=== PATIENT | female | born 1970 | race Caucasian/White ===

== ENCOUNTER → 2017-07-24 | Outpatient (CLI) | payer OTHER ==
--- NOTE | 2017-07-25 11:14 | MM ---
Reason for exam: screening (asymptomatic). Last mammogram was performed 1 year and 4 months ago. History: Family history of breast cancer in mother at age 30 and breast cancer in grandmother. Taking estrogen for 3 years 2 months. Physical Findings: A clinical breast exam by your physician is recommended on an annual basis and results should be correlated with mammographic findings. MG 3D Screening Mammo W/Cad Bilateral CC and MLO view(s) were taken. Prior study comparison: March 22, 2016, bilateral MG screening mammo w CAD. September 09, 2014, bilateral MG screening mammo w CAD. The breast tissue is heterogeneously dense. This may lower the sensitivity of mammography. No significant changes when compared with prior studies. ASSESSMENT: Negative, BI-RAD 1 RECOMMENDATION: Routine screening mammogram of both breasts in 1 year.
== END | disposition home or self-care (01) ==
LOC: RADMAMWWP 09:03
PROVIDERS: ATTEND Obstetrics & Gynecology
DX: Z12.31 Encounter for screening mammogram for malignant neoplasm of breast (principal)
CPT/HCPCS: 77063; 77067

== ENCOUNTER → 2018-08-17 | Outpatient (CLI) | payer OTHER ==
--- NOTE | 2018-08-18 10:38 | MM ---
Reason for exam: screening (asymptomatic). Last mammogram was performed 1 year and 1 month ago. History: Family history of breast cancer in mother at age 30 and breast cancer in grandmother. Taking estrogen for 3 years 2 months. Physical Findings: A clinical breast exam by your physician is recommended on an annual basis and results should be correlated with mammographic findings. MG 3D Screening Mammo W/Cad Bilateral CC and MLO view(s) were taken. XCCL view(s) were taken of the left breast. Prior study comparison: July 24, 2017, bilateral MG 3d screening mammo w/cad. March 22, 2016, bilateral MG screening mammo w CAD. The breast tissue is heterogeneously dense. This may lower the sensitivity of mammography. Finding: There is a 5 mm circumscribed oval mass in the lower inner quadrant, anterior position of the left breast. There is a chronic nodularity in the right outer quadrant and the left inner quadrant. New finding since July 24, 2017. ASSESSMENT: Incomplete: need additional imaging evaluation, BI-RAD 0 RECOMMENDATION: Ultrasound of the left breast. [facility] will attempt to contact patient to return for ultrasound.
== END | disposition home or self-care (01) ==
LOC: RADMAMWWP 09:55
PROVIDERS: ATTEND Obstetrics & Gynecology
DX: Z12.31 Encounter for screening mammogram for malignant neoplasm of breast (principal)
CPT/HCPCS: 77063; 77067

== ENCOUNTER → 2018-08-27 | Outpatient (CLI) | payer OTHER ==
--- NOTE | 2018-08-27 10:39 | USB ---
Reason for exam: additional evaluation requested from abnormal screening. History: Family history of breast cancer in mother at age 30 and breast cancer in grandmother. Taking estrogen for 3 years 2 months. Physical Findings: Nurse did not find any significant physical abnormalities on exam. US Breast Workup Limited LT Left limited breast ultrasound including focal area of concern, retroareolar and axilla demonstrates a 0.6 x 0.4 x 0.6cm circumscribed, solid lesion at the posterior nipple. This is incidental and likely benign finding. No other solid or cystic lesion seen to correspond to the mammographic asymmetry. Scanned periareolar and lower inner quadrant. These results were verbally communicated with the patient and result sheet given to the patient on 08/27/18. ASSESSMENT: Probably benign, BI-RAD 3 RECOMMENDATION: Follow-up diagnostic mammogram and ultrasound of the left breast in 6 months.
== END | disposition home or self-care (01) ==
LOC: RADUSWWP 07:37
PROVIDERS: ATTEND Obstetrics & Gynecology
DX: R92.8 Other abnormal and inconclusive findings on diagnostic imaging of breast (principal)

== ENCOUNTER → 2019-03-01 | Outpatient (CLI) | payer OTHER ==
--- NOTE | 2019-03-01 09:42 | MM ---
Reason for exam: follow-up at short interval from prior study. Last mammogram was performed 6 months ago. History: Family history of breast cancer in mother at age 30 and breast cancer in grandmother. Took estrogen for 3 years 2 months. Physical Findings: Nurse did not find any significant physical abnormalities on exam. MG 3D Diag Mammo W/Cad LT CC and MLO view(s) were taken of the left breast. Prior study comparison: August 17, 2018, bilateral MG 3d screening mammo w/cad. July 24, 2017, bilateral MG 3d screening mammo w/cad. There is a 2mm area of upper outer quadrant calcifications on the left (only 3 definitive calcifications, not yet a true group) 6 month follow up recommended. Lateral middle depth distortion improves on magnification view and true lateral. 6 month follow up. These results were verbally communicated with the patient and result sheet given to the patient on 03/01/19. ASSESSMENT: Probably benign, BI-RAD 3 RECOMMENDATION: Follow-up diagnostic mammogram of both breasts in 6 months. Ultrasound of the left breast in 6 months.
--- NOTE | 2019-03-01 09:44 | USB ---
Reason for exam: follow-up at short interval from prior study. History: Family history of breast cancer in mother at age 30 and breast cancer in grandmother. Took estrogen for 3 years 2 months. US Breast Limited LT Left limited breast ultrasound including focal area of concern, retroareolar and axilla demonstrates a 6 x 4 x 6mm oval, solid lesion at posterior nipple, fibroglandular tissue versus unchanged smoothly marginated mass previously measuring 6 x 4 x 6mm. These results were verbally communicated with the patient and result sheet given to the patient on 03/01/19. ASSESSMENT: Probably benign, BI-RAD 3 RECOMMENDATION: Follow-up diagnostic mammogram of both breasts in 6 months. Ultrasound of the left breast in 6 months.
== END | disposition home or self-care (01) ==
LOC: RADMAMWWP 07:27
PROVIDERS: ATTEND Obstetrics & Gynecology
DX: R92.8 Other abnormal and inconclusive findings on diagnostic imaging of breast (principal)
CPT/HCPCS: 77061; 77065

== ENCOUNTER → 2019-12-30 | Outpatient (CLI) | payer BC ==
--- NOTE | 2019-12-30 11:37 | MM ---
Reason for exam: additional evaluation requested from prior study. Last mammogram was performed 10 months ago. History: Family history of breast cancer in mother at age 30 and breast cancer in grandmother. Took estrogen for 3 years 2 months. Physical Findings: Nurse did not find any significant physical abnormalities on exam. MG 3D Diag Mammo W/Cad DWIGHT Bilateral CC and MLO view(s) were taken. Prior study comparison: March 01, 2019, left breast MG 3d diag mammo w/cad LT. August 17, 2018, bilateral MG 3d screening mammo w/cad. The breast tissue is heterogeneously dense. This may lower the sensitivity of mammography. No significant new findings when compared with previous films. These results were verbally communicated with the patient and result sheet given to the patient on 12/30/19. ASSESSMENT: Benign, BI-RAD 2 RECOMMENDATION: Routine screening mammogram of both breasts in 1 year.
--- NOTE | 2019-12-30 11:40 | USB ---
Reason for exam: additional evaluation requested from prior study. History: Family history of breast cancer in mother at age 30 and breast cancer in grandmother. Took estrogen for 3 years 2 months. US Breast LT Left complete breast ultrasound includes all four quadrants, the retroareolar region and axilla. Finding demonstrates a 6 x 4 x 6mm oval, hypoechoic lesion, questionable lobe at the posterior nipple. Stable from 03/01/19. Not ultrasound benign but suspicious changes not evident. No shadowing, no irregular borders. If biopsy not performed, ultrasound in 6 months can be performed. These results were verbally communicated with the patient and result sheet given to the patient on 12/30/19. ASSESSMENT: Suspicious, BI-RAD 4 RECOMMENDATION: Ultrasound core biopsy of the left breast. (subareolar) Called Dr. Floyd's office with mammographic findings and has scheduled an appointment for the patient for 01/27/20 at 3:[address] Stoo. Biopsy scheduled for 01/31/20 at 1:00. PRELIMINARY REPORT CALLED AND FAXED TO DR. SOTO ON 12/30/19.
--- NOTE | 2019-12-30 13:37 | BD ---
EXAMINATION TYPE: Axial Bone Density DATE OF EXAM: 12/30/2019 COMPARISON: NONE CLINICAL HISTORY: 49 YR OLD FEMALE.....ICD-10 CODE: Z78.0 POST MENOPAUSAL, N95.1, Z13.820 Height: 65 Weight: 167 FRAX RISK QUESTIONS: Family History (Parent hip fracture): YES History of Fracture in Adulthood: YES RISK FACTORS HISTORY OF: FX TO LT TOES, LAST 2018 Family History of Osteoporosis: YES, MOTHER, WITH HIP FX Active:YES Postmenopausal woman: HANNAH, AUG 2019 LMP Hyperparathyroidism: NO Adrenal Insufficiency: NO MEDICATIONS: Additional Medications: D3, BP MEDS, LEXAPRO, CHOLESTEROL MEDS, Additional History: HYPERTENSION, CHOLESTEROL EXAM MEASUREMENTS: Bone mineral densitometry was performed using the [employer] System. Bone mineral density as measured about the Lumbar spine is: ----- L1-L4(G/cm2): 1.088 T Score Values are as follows: ----- L1: -1.0 ----- L2: -1.2 ----- L3: -0.6 ----- L4: -0.4 ----- L1-L4: -0.8 Bone mineral density FIRST BONE DENSITY SCAN........BASELINE STUDY Bone mineral density about the R hip (g/cm2): 0.967 Bone mineral density about the L hip (g/cm2): 0.979 T Score values are as follows: -----R Neck: -0.4 -----L Neck: -0.3 -----R Total: -0.3 -----L Total: -0.2 Bone mineral density BASELINE STUDY FRAX%s: THERE IS A 13.25 CHANCE FOR A MAJOR OSTEOPOROTIC FX AND A 0.2% FOR HIP......PROBABILITY FO R FX IN 10 YRS TIME IMPRESSION: Normal (Values between +1 and -1 indicate normal bone mass). Consider repeating this study in 5 year s or sooner if there is some new clinical indication. NOTE: T-SCORE=SD OF THE YOUNG ADULT MEAN.
== END | disposition home or self-care (01) ==
LOC: RADMAMWWP 09:04
PROVIDERS: ATTEND Obstetrics & Gynecology
DX: Z13.820 Encounter for screening for osteoporosis (principal); R92.8 Other abnormal and inconclusive findings on diagnostic imaging of breast; Z78.0 Asymptomatic menopausal state
CPT/HCPCS: 77062; 77066; 77080

== ENCOUNTER → 2020-01-31 | Day surgery (SDC) | payer BC ==
[2020-01-31 12:22] VITALS: RESP 16
[2020-01-31 13:39] VITALS: BP 125/79; PULSE 66; TEMP 98.1
--- NOTE | 2020-01-31 14:00 | MM ---
EXAMINATION TYPE: US biopsy breast VAD LT DATE OF EXAM: 01/31/2020 CLINICAL HISTORY: R92.8 ABN MAMMO. TECHNIQUE: Ultrasound guided vaccuum assisted core biopsy of left breast. COMPARISON: 12/30/2019 FINDINGS: The ultrasound guided core biopsy procedure was explained to the patient. The risks, benef its, alternatives were discussed. An informed consent was then obtained. Timeout was performed. The patient was placed in supine positioning for imaging and for the procedure. The overlying skin w as prepped with betadine and sterilely draped in usual sterile fashion. Lidocaine 1% was used as ane sthetic into the skin and deeper breast tissue up to area of concern in the breast. A small skin marcos k was made with surgical scalpel. Under ultrasound guidance, a 12-gauge vacuum assisted biopsy device was used to obtain 5 core samples . A biopsy clip was left in lesion. Good hemostasis was obtained with direct pressure. Discharge instructions were discussed with the bernard torre. The patient will follow up with the referring physician for results. Postprocedure mammogram: The patient was transferred to mammography for physician ordered post proced ure mammogram for clip placement verification. The clip is in the expected region of the biopsy. The patient tolerated the procedure well without any immediate complication. The patient was dischar ged to home in stable condition. IMPRESSION: 1. Successful ultrasound guided biopsy left breast.
--- NOTE | 2020-01-31 14:00 | USB ---
EXAMINATION TYPE: US biopsy breast VAD LT DATE OF EXAM: 01/31/2020 CLINICAL HISTORY: R92.8 ABN MAMMO. TECHNIQUE: Ultrasound guided vaccuum assisted core biopsy of left breast. COMPARISON: 12/30/2019 FINDINGS: The ultrasound guided core biopsy procedure was explained to the patient. The risks, benefits, alternatives were discussed. An informed consent was then obtained. Timeout was performed. The patient was placed in supine positioning for imaging and for the procedure. The overlying skin was prepped with betadine and sterilely draped in usual sterile fashion. Lidocaine 1% was used as anesthetic into the skin and deeper breast tissue up to area of concern in the breast. A small skin gissel was made with surgical scalpel. Under ultrasound guidance, a 12-gauge vacuum assisted biopsy device was used to obtain 5 core samples. A biopsy clip was left in lesion. Good hemostasis was obtained with direct pressure. Discharge instructions were discussed with the patient. The patient will follow up with the referring physician for results. Postprocedure mammogram: The patient was transferred to mammography for physician ordered post procedure mammogram for clip placement verification. The clip is in the expected region of the biopsy. The patient tolerated the procedure well without any immediate complication. The patient was discharged to home in stable condition. IMPRESSION: 1. Successful ultrasound guided biopsy left breast. Pathology Results: High Risk LEFT BREAST NIPPLE, ULTRASOUND GUIDED CORE BIOPSY: Lobular neoplasia (ALH/LCIS) and background fibrocystic changes including fibrosis, small cysts and duct ectasia. See note. Recommendation Surgical consult of the left breast. SARAH
== END ==
LOC: RADUSWWP 11:53
PROVIDERS: ATTEND Surgery
DX: D05.02 Lobular carcinoma in situ of left breast (principal); N60.42 Mammary duct ectasia of left breast; N60.32 Fibrosclerosis of left breast
CPT/HCPCS: 77065; 19083; A4648; J2001; 88305; 88341; 88342

== ENCOUNTER → 2020-02-08 | Outpatient (CLI) | payer BC ==
[2020-02-08 13:06] VITALS: BP 111/74; PULSE 74; RESP 16; TEMP 98.2
--- NOTE | 2020-02-08 15:34 | P.PN ---
Subjective Progress Note Date: 02/08/20 Principal diagnosis: results of ultrasound core biopsy Letitia is a 49-year-old white female who is status post bilateral mammogram performed in February 2019. It was recommended she have repeat bilateral mammogram of the left breast in 6 months. It was also recommended she have an u ltrasound of the left breast in 6 months. This was delayed secondary to covid 19, bilateral mammogram was performed in December 2019. This was felt to be benign BIRADS 2 and an ultrasound of the left breast was performed which revealed a 6 x 4 mm oval hypoechoic lesion at the posterior nipple area. This was stable however it was recommended that either biopsy be performed her ultrasound repeated in 6 months. She is seen in consultation for Dr. Floyd regarding this finding. The patient denies any masses lumps or new changes in her breast. Complain of any nipple discharge or skin changes. There is no history of any recent trauma or infection in the breast. She has never had a breast biopsy or surgery on the breast in the past. The patient does complain of some intermittent lateral breast discomfort. She is uncertain as to what causes it. It occurs approximately once a week. It is not spreading place. It is fleeting in nature. She does not have to take any medication for this. She has been having this sensation for over a year, she did cut down on caffeine and started vitamin E and this did help with that. She underwent an ultrasound guided core biopsy of the left breast on 01-31-20. This revealed ALH/LCIS. She tolerated the procedure with no complaints. Caffeine: 4 to 6 cups of coffee per day Nicotine: Negative Theophylline: negative hormones: none, did take BCP until 8 months ago Family history: mother: breast cancer paternal grandmother: breast cancer maternal grandmother: liver cancer maternal aunt: multiple myloma Hormonal History: menarche: 13 , age at 29, breast fed: yes menopause: periods irregular/perimenopausal, no hot flashes or night sweats BCP: Intermittently 20 years Hormones: Negative Surgical history: 1. Sebaceous cyst removed from her neck Medical history: Hypertension Migraine headaches Social History: smoke: none alcohol: social once or twice a week Lungs: Negative - Constitutional Constitutional: Denies chills, Denies fever - EENT Eyes: denies blurred vision, denies pain Ears: deny: decreased hearing, tinnitus Ears, nose, mouth and throat: Reports headache, Denies sore throat - Breasts Breasts: bilateral: as per HPI - Cardiovascular Cardiovascular: Reports high blood pressure - Respiratory Respiratory: Denies cough - Gastrointestinal Gastrointestinal: Denies abdominal pain, Denies diarrhea, Denies nausea, Denies vomiting - Genitourinary (Female) Genitourinary: Denies dysuria, Denies hematuria - Menstruation Menstruation: Reports menses variable - Musculoskeletal Musculoskeletal: Denies myalgias - Integumentary Integumentary: Reports pruritus - Neurological Neurological: Denies numbness, Denies weakness - Psychiatric Psychiatric: Reports anxiety, Reports depression - Endocrine Endocrine: Reports fatigue, Denies weight change - Hematologic/Lymphatic Comment: none - Allergic/Immunologic Allergic/Immunologic: Reports as per HPI Objective - Vital Signs Vital signs: Vital Signs Temp 98.2 F 02/08/20 12:54 Pulse 74 02/08/20 12:54 Resp 16 02/08/20 12:54 BP 111/74 02/08/20 12:54 Pulse Ox 98 02/08/20 12:54 Intake & Output 02/07/20 02/08/20 02/08/20 18:59 06:59 18:59 Weight 75.75 kg - Constitutional General appearance: Present: average body habitus - EENT Eyes: Present: EOMI ENT: Present: hearing grossly normal - Neck Neck: Present: normal ROM - Respiratory Respiratory: bilateral: CTA - Cardiovascular Rhythm: regular Heart sounds: normal: S1, S2 - Gastrointestinal General gastrointestinal: Present: normal bowel sounds, soft - Integumentary Integumentary Comment(s): nevis under left breast Integumentary: Present: normal turgor - Musculoskeletal Musculoskeletal: Present: gait normal - Psychiatric Psychiatric: Present: A&O x's 3, appropriate affect, intact judgment & insight - Additional findings Additional findings: breast exam: BRA 36B inspection: billateral ptosis grade 2 palpation: right breast: Multi-positional exam no dominant masses or nodules of concern Right axilla: No adenopathy of concern Left breast: Positional exam fibrocystic changes, slight fullness noted in the retroareolar area/patient had ultrasound-guided core biopsy of this site finding s consistent with LCIS Left axilla: No adenopathy of concern Skin under the left breast nevus Assessment and Plan Assessment: Impression: 1. LCIS left breast ultrasound-guided core biopsy 2. Nevus on the left breast Plan: 1. Needle localization excisional lumpectomy with possible onco-plastic tissue transfer via a crescent mastopexy incision 2. excision of skin nevis under left breast CC: Dr. Suresh encounter 15 minutes > 50% of time in planning and counselling
== END | disposition home or self-care (01) ==
LOC: WWCWWP 12:18
PROVIDERS: ATTEND Surgery
DX: Z53.9 Procedure and treatment not carried out, unspecified reason (principal)

== ENCOUNTER 2020-03-21 07:21 | Day surgery (SDC) | payer BC ==
[2020-03-16 12:40] VITALS: BMI 26.6
--- NOTE | 2020-03-17 17:04 | P.PN ---
Subjective Progress Note Date: 03/17/20 Principal diagnosis: LCIS of the left breast Letitia is a 49-year-old white female who is status post bilateral mammogram performed in February 2019. It was recommended she have repeat bilateral mammogram of the left breast in 6 months. It was also recommended she have an ultrasound of the left breast in 6 months. This was delayed secondary to covid 19, bilateral mammogram was performed in December 2019. This was felt to be benign BIRADS 2 and an ultrasound of the left breast was performed which revealed a 6 x 4 mm oval hypoechoic lesion at the posterior nipple area. This was stable however it was recommended that either biopsy be performed her ultrasound repeated in 6 months. She is seen in consultation for Dr. Floyd regarding this finding. The patient denies any masses lumps or new changes in her breast. Complain of any nipple discharge or skin changes. There is no history of any recent trauma or infection in the breast. She has never had a breast biopsy or surgery on the breast in the past. The patient does complain of some intermittent lateral breast discomfort. She is uncertain as to what causes it. It occurs approximately once a week. It is not spreading place. It is fleeting in nature. She does not have to take any medication for this. She has been having this sensation for over a year, she did cut down on caffeine and started vitamin E and this did help with that. She underwent an ultrasound guided core biopsy of the left breast on 01-31-20. This revealed ALH/LCIS. She tolerated the procedure with no complaints. Caffeine: 4 to 6 cups of coffee per day Nicotine: Negative Theophylline: negative hormones: none, did take BCP until 8 months ago Family history: mother: breast cancer paternal grandmother: breast cancer maternal grandmother: liver cancer maternal aunt: multiple myloma Hormonal History: menarche: 13 , age at 29, breast fed: yes menopause: periods irregular/perimenopausal, no hot flashes or night sweats BCP: Intermittently 20 years Hormones: Negative Surgical history: 1. Sebaceous cyst removed from her neck Medical history: Hypertension Migraine headaches Social History: smoke: none alcohol: social once or twice a week Lungs: Negative - Constitutional Constitutional: Denies chills, Denies fever - EENT Eyes: denies blurred vision, denies pain Ears: deny: decreased hearing, tinnitus Ears, nose, mouth and throat: Reports headache, Denies sore throat - Breasts Breasts: bilateral: as per HPI - Cardiovascular Cardiovascular: Reports high blood pressure - Respiratory Respiratory: Denies cough - Gastrointestinal Gastrointestinal: Denies abdominal pain, Denies diarrhea, Denies nausea, Denies vomiting - Genitourinary (Female) Genitourinary: Denies dysuria, Denies hematuria - Menstruation Menstruation: Reports menses variable - Musculoskeletal Musculoskeletal: Denies myalgias - Integumentary Integumentary: Reports pruritus - Neurological Neurological: Denies numbness, Denies weakness - Psychiatric Psychiatric: Reports anxiety, Reports depression - Endocrine Endocrine: Reports fatigue, Denies weight change - Hematologic/Lymphatic Comment: none - Allergic/Immunologic Allergic/Immunologic: Reports as per HPI Objective - Vital Signs Vital signs: Intake & Output 03/16/20 03/17/20 03/17/20 18:59 06:59 18:59 Weight 74.843 kg - Constitutional General appearance: Present: average body habitus - EENT Eyes: Present: EOMI ENT: Present: hearing grossly normal - Respiratory Respiratory: bilateral: CTA - Cardiovascular Rhythm: regular Heart sounds: normal: S1, S2 - Gastrointestinal General gastrointestinal: Present: normal bowel sounds, soft - Integumentary Integumentary: Present: normal turgor - Musculoskeletal Musculoskeletal: Present: gait normal - Psychiatric Psychiatric: Present: A&O x's 3, appropriate affect, intact judgment & insight - Additional findings Additional findings: Breast examination: Block: 30 6B Inspection: Bilateral ptosis grade 2 Palpation: Right breast: Multiple position of exam no dominant masses or nodules of concern Right axilla: No adenopathy of concern left breast: Multi-positional exam fibrocystic changes, slight fullness noted in the retroareolar area patient had ultrasound-guided core biopsy of this site consistent with LCIS Left axilla: No adenopathy of concern Skin and her left breast with nevus Assessment and Plan Assessment: Impression: 1. LCIS left breast ultrasound-guided core biopsy 2. Nevus near left breast Plan: 1. Needle localization excisional lumpectomy with possible uncle plastic tissue transfer. [place] mastopexy incision 2. Excision of skin nevus under her left breast
[~2020-03-21 07:21] MED LIST: DEXAMETHASONE SOD PHOSPHATE 10 MG/ML 1 ML VIAL IV ONE; HEPARIN SODIUM,PORCINE 5,000 UNIT/ML 1 ML VIAL SQ ONE; HYDROmorphone 0.5 MG/0.5 ML SYRINGE IVP PRN; LACTATED RINGERS 1,000 ML IV SCH; MIDAZOLAM 2 MG/2 ML VIAL IV PRN; ONDANSETRON 4 MG/2 ML VIAL IVP ONE; Pre Op ABX Message 1 EACH MISC MISCELLANE ONE; SCOPOLAMINE 1.5MG/72HR PATCH TRANSDERM ONE
[2020-03-21] MEDS ORDERED: LIDOCAINE 1% (10MG/ML) FOR IV START INTRADERMA ONE (08:01)
[2020-03-21] MEDS ORDERED: ALPRAZolam 0.5 MG TAB ONE (08:14)
[2020-03-21] MEDS ORDERED: LIDOCAINE 1% INJ 10MG/ML (20 ML MDV) SQ ONE ×2 (08:51→10:53)
[2020-03-21] MEDS ORDERED: PHENYLEPHRINE-0.9% NACL SYG 1 MG/10 ML SYRINGE ONE (10:41)
[2020-03-21] MEDS ORDERED: PROPOFOL 10 MG/ML 20 ML VIAL IV ONE (10:41)
[2020-03-21] MEDS ORDERED: HYDROmorphone (PF) 1 MG/ML ONE (10:41)
[2020-03-21] MEDS ORDERED: LIDOCAINE 1% INJ 10MG/ML (20 ML MDV) ONE (10:41)
[2020-03-21] MEDS ORDERED: fentaNYL (PF) 50 MCG/ML 2 ML AMP ONE (10:41)
[2020-03-21] MEDS ORDERED: SUCCINYLCHOLINE CHLORIDE 100 MG/5 ML SYR IV ONE (10:41)
[2020-03-21] MEDS ORDERED: MIDAZOLAM 2 MG/2 ML VIAL ONE (10:41)
[2020-03-21] MEDS ORDERED: ROCURONIUM BROMIDE 10 MG/ML 5 ML VIAL IV ONE (10:41)
[2020-03-21] MEDS ORDERED: LACTATED RINGERS 1,000 ML IV ONE (12:15)
--- NOTE | 2020-03-21 12:23 | P.OP ---
Date of Procedure: 03/21/20 Preoperative Diagnosis: Lobular carcinoma in situ left breast, abnormal moles left breast/inframammary area Postoperative Diagnosis: Same Procedure(s) Performed: Localization excisional biopsy, mastopexy, on-co plastic tissue transfer, excision of 2 nevi Anesthesia: KODI, local Surgeon: Rosa Maria Soto Estimated Blood Loss (ml): 5 IV fluids (ml): 800 Pathology: other (breat tissue, moles) Condition: stable Disposition: same day Indications for Procedure: LCIS on core biopsy of the left breast, 2 abnormal nevi Operative Findings: Dense breast tissue, abnormal nevi Description of Procedure: Letitia is a 49-year-old white female who underwent a core biopsy of an area of concern in the left breast. This revealed lobular carcinoma in situ. She was recommended to undergo needle localization and excisional biopsy of the area. Additionally to abnormal nevi were noted associated with the left breast. It was recommended these be excised. The patient was taken to the operating room after preoperative markings were placed in the preoperative area for incision placement via a crescent mastopexy incision. She has bilateral grade 2 ptosis. In the operating room following induction of anesthesia the left breast was prepped and draped in a sterile fashion. The area which had previously been marked was de-epithelialized. The parenchyma of the breast was entered. Dissection was performed laterally to a needle which had been placed preoperatively and the surrounding tissue was excised. Radiograph of the specimen revealed the area of concern had been removed. Prior to radiograph the specimen was painted for orientation. Following this the tissue was mobilized medially and laterally. 12 cm of tissue was mobilized laterally and 8 cm mobilized medially for a total of 20 cm of tissue mobilized. The cavity was well irrigated and evaluated for hemostasis. Titanium clips were placed. After we were assured that hemostasis was obtained the pillars of tissue were closed medially and laterally. The skin was closed using 3-0 dermal suture followed by a 4-0 Monocryl subcuticular suture. Following this instruments were changed and the 2 nevi were removed. That on the breast was approximately 8 mm in size, wide excision was performed and skin was closed using nylon suture. That in the inframammary area was 1 cm in size wide excision was performed and the skin was closed using nylon suture. The patient tolerated the procedure in stable condition. All instrument and sponge counts were correct at the end of the case.
--- NOTE | 2020-03-21 12:25 | P.DS ---
Providers Attending physician: Rosa Maria Soto Primary care physician: Gonsalo Suresh Plan - Discharge Summary Discharge Rx Participant: Yes New Discharge Prescriptions: No Action Simvastatin [Zocor] 20 mg PO HS Chlorthalidone [Hygroton] 25 mg PO HS Escitalopram [Lexapro] 20 mg PO HS Galcanezumab-Gnlm [Emgality] 120 mg SQ ONCE Cholecalciferol [Vitamin D3] 400 unit PO QAM Vitamin E 400 unit PO DAILY Turmeric Root Extract [Turmeric] 500 mg PO DAILY Rizatriptan Benzoate [Maxalt] 10 mg PO DIRECTED PRN PRN Reason: Migraine Headache Discharge Medication List Chlorthalidone [Hygroton] 25 mg PO HS 01/21/20 [History] Cholecalciferol [Vitamin D3] 400 unit PO QAM 01/21/20 [History] Escitalopram [Lexapro] 20 mg PO HS 01/21/20 [History] Galcanezumab-Gnlm [Emgality] 120 mg SQ ONCE 01/21/20 [History] Simvastatin [Zocor] 20 mg PO HS 01/21/20 [History] Rizatriptan Benzoate [Maxalt] 10 mg PO DIRECTED PRN 03/16/20 [History] Turmeric Root Extract [Turmeric] 500 mg PO DAILY 03/16/20 [History] Vitamin E 400 unit PO DAILY 03/16/20 [History] Follow up Appointment(s)/Referral(s): Rosa Maria Soto MD [STAFF PHYSICIAN] - 1 Week Activity/Diet/Wound Care/Special Instructions: do not drive for 24 hours after d/c do not drive if taking narcotic pain medication may shower after 48 hours wear bra at all times Discharge Disposition: HOME SELF-CARE
[2020-03-21 12:50] VITALS: TEMP 98.8
[2020-03-21 13:05] VITALS: RESP 16
[2020-03-21 14:05] VITALS: BP 124/82; PULSE 91
--- NOTE | 2020-03-21 19:34 | MM ---
EXAMINATION TYPE: MG pre op needle loc LT, MG surgical specimen LT DATE OF EXAM: 03/21/2020 COMPARISON: 01/31/2020 CLINICAL HISTORY: 49-year-old female with a LCIS/ALH, high risk lesion on ultrasound core needle biop sy, referred for needle localization for excision of the left breast. TECHNIQUE: Needle localization with wire placement and surgical excision of area of concern in the le ft breast. FINDINGS: The procedure of needle localization with wire placement and than surgical excision was exp lained to the patient. Benefits, alternatives, and risks were discussed. An informed consent was th en obtained. The shortest pathway for procedure was chosen. Shortest pathway was a lateral approach. The overlyin g skin was prepped and draped in usual sterile fashion. Lidocaine was used as anesthetic into the sk in and subcutaneous tissue up to the level of area of concern. A 5 cm Kopans needle was used. It wa s placed via a lateral approach under mammographic guidance. Subsequent 90 degrees mammogram show th e needle to be in satisfactory position relative to the targeted area. At this point, wire was place d and the needle was withdrawn. The wire was fixed to patient's skin. Images were marked for surgeo n. The patient tolerated the procedure well without any immediate complication. The patient was kept in the radiology department for short stay after the procedure and then taken to surgery for surgical e xcision. Targeted clip and wire are identified in specimen mammogram. The patient was kept in [facility] for short stay after the procedure and then discharged home in stable condition. IMPRESSION: Successful, uncomplicated needle localization with wire placement and surgical excision of site of bi opsy-proven high risk lesion (ALS/LCIS) in the left breast, full pathology results to follow.
== END 2020-03-21 14:21 | disposition home or self-care (01) ==
LOC: OR 07:21
PROVIDERS: ATTEND Surgery
DX: D05.02 Lobular carcinoma in situ of left breast (principal); D22.5 Melanocytic nevi of trunk; N60.12 Diffuse cystic mastopathy of left breast; N60.22 Fibroadenosis of left breast; I10 Essential (primary) hypertension; G43.909 Migraine, unspecified, not intractable, without status migrainosus; Z79.899 Other long term (current) drug therapy; Z98.890 Other specified postprocedural states; Z80.0 Family history of malignant neoplasm of digestive organs; Z80.3 Family history of malignant neoplasm of breast; Z80.8 Family history of malignant neoplasm of other organs or systems
CPT/HCPCS: 81025; 88305; 84132; 88307; 76098; 19281; 19125; J2250; J1644; J1100; J2405; J2001; J3010; J1170; J2370; J0330; J2704

== ENCOUNTER → 2020-03-30 | Outpatient (CLI) | payer BC ==
[2020-03-30 15:02] VITALS: BP 126/81; PULSE 91; RESP 18; TEMP 98.2
--- NOTE | 2020-03-30 15:03 | P.PN ---
Progress Note - Text Progress Note Date: 03/30/20 Letitia is a 49-year-old white female status post left breast lumpectomy for an area of LCIS/ADL H on a core biopsy. Pathology was benign. Additionally to skin nevi were removed one as a compound nevus and the second is a junctional nevus. The patient has no complaints postprocedure. Physical exam: Incisions: Clean and dry Lungs: Clear Heart: Regular rate and rhythm Impression: 1. Lumpectomy benign 2. Benign Plan: 1. Repeat left breast mammogram and exam in 6 months 2. Patient to follow up in 6 months Cc: Dr. Suresh
== END | disposition home or self-care (01) ==
LOC: WWCWWP 14:44
PROVIDERS: ATTEND Surgery
DX: Z53.9 Procedure and treatment not carried out, unspecified reason (principal)

== ENCOUNTER → 2020-05-19 | Outpatient (CLI) | payer BC | END | disposition home or self-care (01) | LOC: LABWHC1 13:06 | PROVIDERS: ATTEND Family Medicine | DX: Z20.828 Contact with and (suspected) exposure to other viral communicable diseases (principal) | CPT/HCPCS: U0003; C9803 ==

== ENCOUNTER → 2020-10-18 | Outpatient (CLI) | payer BC ==
--- NOTE | 2020-10-18 13:46 | MM ---
Reason for exam: follow-up at short interval from prior study. Last mammogram was performed 9 months ago. History: Patient has history of high-risk lesion on a previous biopsy at age 49. Family history of breast cancer in mother at age 30 and breast cancer in grandmother. Benign MG pre op needle loc LT of the left breast, March 21, 2020. Lumpectomy of the left breast, March 21, 2020. High risk US biopsy breast VAD LT of the left breast, January 31, 2020. Took estrogen for 3 years 2 months. Physical Findings: Nurse did not find any significant physical abnormalities on exam. MG 3D Diag Mammo W/Cad LT CC and MLO view(s) were taken of the left breast. Prior study comparison: January 31, 2020, left breast MG diagnostic mammo LT wo CAD. December 30, 2019, bilateral MG 3d diag mammo w/cad DWIGHT. There are scattered fibroglandular densities. Lumpectomy site left upper outer quadrant, at patient's area of concern. These results were verbally communicated with the patient and result sheet given to the patient on 10/18/20. ASSESSMENT: Benign, BI-RAD 2 RECOMMENDATION: Follow-up diagnostic mammogram of both breasts in 3 months. Back on schedule for December 2020.
== END | disposition home or self-care (01) ==
LOC: RADMAMWWP 10:48
PROVIDERS: ATTEND Surgery
DX: R92.8 Other abnormal and inconclusive findings on diagnostic imaging of breast (principal)
CPT/HCPCS: 77061; 77065

== ENCOUNTER → 2020-10-26 | Outpatient (CLI) | payer BC ==
[2020-10-26 10:47] VITALS: BP 137/87; PULSE 87; RESP 18; TEMP 97.6
--- NOTE | 2020-10-26 11:00 | P.PN ---
Subjective Progress Note Date: 10/26/20 Principal diagnosis: fibrocystic breast changes results of ultrasound core biopsy Letitia is a 50-year-old white female who is status post bilateral mammogram performed in February 2019. It was recommended she have repeat bilateral mammogram of the left breast in 6 months. It was also recommended she have an ultrasound of the left breast in 6 months. This was delayed secondary to covid 19, bilateral mammogram was performed in December 2019. This was felt to be benign BIRADS 2 and an ultrasound of the left breast was performed which revealed a 6 x 4 mm oval hypoechoic lesion at the posterior nipple area. This was stable however it was recommended that either biopsy be performed her ultrasound repeated in 6 months. She is seen in consultation for Dr. Floyd regarding this finding. The patient had a needle localization and excisional biopsy of the left breast and [address]. This was benign. This was in response to a core biopsy which had been done and 720 720 which revealed atypical lobular hyperplasia and lobular carcinoma in situ. The patient denies any masses lumps or new changes in her breast. Complain of any nipple discharge or skin changes. There is no history of any recent trauma or infection in the breast. She has never had a breast biopsy or surgery on the breast in the past. The patient does complain of some intermittent lateral breast discomfort. She is uncertain as to what causes it. It occurs approximately once a week. It is not spreading place. It is fleeting in nature. She does not have to take any medication for this. She has been having this sensation for over a year, she did cut down on caffeine and started vitamin E and this did help with that. She had a left breast mammogram performed on which was felt to be benign BIRADS 2. We have talked about chemoprevention. She is going to pursue this with medical oncology. There was evaluation was performed. Five-year risk for the patient is 4.3%, compared with 1.3% for average 50-year-old Lifetime risk 34.3% compared with 11.2% risk for average 50-year-old She is also interested in talking to a mobile application engineer. Caffeine: 2 cups of coffee per day decreased from 6 cups Nicotine: Negative Theophylline: negative hormones: none, did take BCP for about 2 years Family history: mother: breast cancer paternal grandmother: breast cancer maternal grandmother: liver cancer maternal aunt: multiple myloma Hormonal History: menarche: 13 , age at 29, breast fed: yes menopause: no period 1 year; no hot flashes or night sweats BCP: Intermittently 20 years Hormones: Negative Surgical history: 1. Sebaceous cyst removed from her neck Medical history: Hypertension Migraine headaches Social History: smoke: none alcohol: social once or twice a week Lungs: Negative - Constitutional Constitutional: Denies chills, Denies fever - EENT Eyes: denies blurred vision, denies pain Ears: deny: decreased hearing, tinnitus Ears, nose, mouth and throat: Reports headache, Denies sore throat - Breasts Breasts: bilateral: as per HPI - Cardiovascular Cardiovascular: Reports high blood pressure - Respiratory Respiratory: Denies cough - Gastrointestinal Gastrointestinal: Denies abdominal pain, Denies diarrhea, Denies nausea, Denies vomiting - Genitourinary (Female) Genitourinary: Denies dysuria, Denies hematuria - Menstruation Menstruation: Reports menses variable - Musculoskeletal Musculoskeletal: Denies myalgias - Integumentary Integumentary: Reports pruritus - Neurological Neurological: Denies numbness, Denies weakness - Psychiatric Psychiatric: Reports anxiety, Reports depression - Endocrine Endocrine: Reports fatigue, Denies weight change - Hematologic/Lymphatic Comment: none - Allergic/Immunologic Allergic/Immunologic: Reports as per HPI Objective - Exam BMI 25.6 - Constitutional General appearance: Present: average body habitus - EENT Eyes: Present: EOMI ENT: Present: hearing grossly normal - Neck Neck: Present: normal ROM - Respiratory Respiratory: bilateral: CTA - Cardiovascular Rhythm: regular Heart sounds: normal: S1, S2 - Integumentary Integumentary: Present: normal turgor - Musculoskeletal Musculoskeletal: Present: gait normal - Psychiatric Psychiatric: Present: A&O x's 3, appropriate affect, intact judgment & insight - Additional findings Additional findings: Breast exam: Bra: 36B Inspection: Bilateral grade 2 ptosis, well-healed scar left breast from prior biopsy Palpation: Right breast: Multiple positional exam fibrocystic changes dense breasts no dominant masses or nodules of concern Right axilla: No adenopathy of concern Left breast: Well-healed scar from prior surgery no dominant masses or nodules of concern fibrocystic changes, dense breast Left axilla: No adenopathy of concern Assessment and Plan Assessment: Impression: 1. Positive family history of breast cancer 2. Positive personal history of atypical hyperplasia 3. Status post left breast excisional biopsy 4. Recent left breast mammogram benign BIRADS 2 5. Elevated personal risk of breast cancer as per Marylin risk evaluation 6. We have talked about seeing genetic counseling secondary to family history as well as possible chemoprevention 7. Probable postmenopausal Plan: 1. Appointment with medical oncology to discuss chemoprenvention 2. Appointment with genetic counselor to consider genetic testing 3. Repeat bilateral mammogram, was scheduled for December but will try to get mammograms together so patient has agreed to bilateral in March CC: Dr. Suresh, Dr. Floyd
== END | disposition home or self-care (01) ==
LOC: WWCWWP 10:31
PROVIDERS: ATTEND Surgery
DX: N60.11 Diffuse cystic mastopathy of right breast (principal); N60.12 Diffuse cystic mastopathy of left breast; I10 Essential (primary) hypertension; F32.9 Major depressive disorder, single episode, unspecified; F41.9 Anxiety disorder, unspecified; Z80.3 Family history of malignant neoplasm of breast; Z98.890 Other specified postprocedural states

== ENCOUNTER 2020-11-03 07:52 | Day surgery (SDC) | payer BC ==
[2020-11-01 14:15] VITALS: BMI 25.8
[~2020-11-03 07:52] MED LIST changes: -DEXAMETHASONE SOD PHOSPHATE 10 MG/ML 1 ML VIAL IV ONE; -HEPARIN SODIUM,PORCINE 5,000 UNIT/ML 1 ML VIAL SQ ONE; -HYDROmorphone 0.5 MG/0.5 ML SYRINGE IVP PRN; -MIDAZOLAM 2 MG/2 ML VIAL IV PRN; -ONDANSETRON 4 MG/2 ML VIAL IVP ONE; -Pre Op ABX Message 1 EACH MISC MISCELLANE ONE; -SCOPOLAMINE 1.5MG/72HR PATCH TRANSDERM ONE
[2020-11-03 08:07] VITALS: TEMP 98.1
[2020-11-03] MEDS ORDERED: ONDANSETRON 4 MG/2 ML VIAL ONE (08:31)
[2020-11-03] MEDS ORDERED: ONDANSETRON 4 MG/2 ML VIAL IVP ONE (08:34)
[2020-11-03] MEDS ORDERED: PROPOFOL 10 MG/ML 20 ML VIAL IV ONE (08:44)
--- NOTE | 2020-11-03 09:04 | P.PCN ---
Date of Procedure: 11/03/20 Procedure(s) Performed: BRIEF HISTORY: Patient is a 50-year-old pleasant white female scheduled for an elective colonoscopy as a part of evaluation of positive cologuard. PROCEDURE PERFORMED: Colonoscopy with snare polypectomy. PREOPERATIVE DIAGNOSIS: Positive cologiuard. IV sedation per Anesthesia. PROCEDURE: After informed consent was obtained, the patient, was brought into the endoscopy unit. IV sedation was administered by Anesthesia under continuous monitoring. Digital rectal examination was normal. Initially the Olympus CF-160 flexible video colonoscope was then inserted in the rectum, gradually advanced into the cecum without any difficulty. Careful examination was performed as the scope was gradually being withdrawn. Ileocecal valve and the appendiceal orifice were visualized and appeared normal. Prep was excellent. Mucosa of the cecum, appeared normal. In the ascending colon there was a 1.5 cm broad-based polyp removed by snare polypectomy. Rest of the ascending colon, transverse colon, descending colon appeared normal. The sigmoid colon there was a 5 mm polyp removed by snare polypectomy. Rest of the, sigmoid colon, and rectum appeared normal. Retroflexion was performed in the rectum and no lesions were seen. The patient tolerated the procedure well. IMPRESSION: 1.5 cm broad-based ascending colon polyp status post polypectomy 5 mm; sigmoid polyp status post snare polypectomy RECOMMENDATIONS: Findings of this examination were discussed with the patient as well as her family.. She was advised to follow with the biopsy results. If the biopsy shows an adenoma she can have a repeat colonoscopy in 3 years
[2020-11-03 09:11] VITALS: PULSE 74; RESP 16
[2020-11-03 09:32] VITALS: BP 122/75
== END 2020-11-03 09:45 | disposition home or self-care (01) ==
LOC: ORWHC2ENDO 07:52
PROVIDERS: ATTEND Internal Medicine Gastroenterology
DX: D12.2 Benign neoplasm of ascending colon (principal); K63.5 Polyp of colon; I10 Essential (primary) hypertension; E78.5 Hyperlipidemia, unspecified; G43.909 Migraine, unspecified, not intractable, without status migrainosus; Z79.899 Other long term (current) drug therapy
CPT/HCPCS: 81025; 88305; 45385; J2405; J2704

== ENCOUNTER → 2021-03-27 | Outpatient (CLI) | payer BC ==
--- NOTE | 2021-03-27 10:04 | MM ---
Reason for exam: additional evaluation requested from prior study. Last mammogram was performed 5 months ago. History: Patient is postmenopausal and has history of high-risk lesion on a previous biopsy at age 49. Family history of breast cancer in mother at age 30 and breast cancer in grandmother. Benign MG pre op needle loc LT of the left breast, March 21, 2020. Lumpectomy of the left breast, March 21, 2020. High risk US biopsy breast VAD LT of the left breast, January 31, 2020. Took hormonal contraceptives for 25 years beginning at age 17. Took estrogen for 3 years 2 months. Physical Findings: Nurse did not find any significant physical abnormalities on exam. MG 3D Diag Mammo W/Cad DWIGHT Bilateral CC and MLO view(s) were taken. XCCL view(s) were taken of the left breast. Prior study comparison: October 18, 2020, left breast MG 3d diag mammo w/cad LT. December 30, 2019, bilateral MG 3d diag mammo w/cad DWIGHT. The breast tissue is heterogeneously dense. This may lower the sensitivity of mammography. Post surgical changes left breast. No significant new findings when compared with previous films. These results were verbally communicated with the patient and result sheet given to the patient on 03/27/21. ASSESSMENT: Benign, BI-RAD 2 RECOMMENDATION: Routine screening mammogram of both breasts in 1 year.
== END | disposition home or self-care (01) ==
LOC: RADMAMWWP 08:55
PROVIDERS: ATTEND Surgery
DX: R92.2 Inconclusive mammogram (principal); Z78.0 Asymptomatic menopausal state; Z80.3 Family history of malignant neoplasm of breast; Z79.3 Long term (current) use of hormonal contraceptives
CPT/HCPCS: 77062; 77066

== ENCOUNTER → 2021-03-30 | Outpatient (CLI) | payer BC ==
[2021-03-30 14:51] VITALS: BP 125/77; PULSE 61; RESP 16; TEMP 98.3
--- NOTE | 2021-03-30 15:22 | P.PN ---
Subjective Progress Note Date: 03/30/21 Principal diagnosis: Fibrocystic breast changes fibrocystic breast change The patient had a needle localization and excisional biopsy of the left breast and [id number]. This was benign. This was in response to a core biopsy which had been done and [address]371 which revealed atypical lobular hyperplasia and lobular carcinoma in situ. The patient denies any masses lumps or new changes in her breast. No complaints of any nipple discharge or skin changes. There is no history of any recent trauma or infection in the breast. She has never had a breast biopsy or surgery on the breast in the past. [place] [address] which was felt to be benign BIRADS 2. We have talked about chemoprevention. She had genetic testing and this was negative. She also discussed this with Dr. Chawla and decided against this. There was evaluation was performed. Five-year risk for the patient is 4.3%, compared with 1.3% for average 50-year-old Lifetime risk 34.3% compared with 11.2% risk for average 50-year-old She is also interested in talking to a cytogenetic technologist. Caffeine: 2 cups of coffee per day decreased from 6 cups Nicotine: Negative Theophylline: negative hormones: none, did take BCP for about 2 years Family history: mother: breast cancer paternal grandmother: breast cancer maternal grandmother: liver cancer maternal aunt: multiple myloma Hormonal History: menarche: 13 , age at 29, breast fed: yes menopause: no period 1 year; no hot flashes or night sweats BCP: Intermittently 20 years Hormones: Negative Surgical history: 1. Sebaceous cyst removed from her neck Medical history: Hypertension Migraine headaches Social History: smoke: none alcohol: social once or twice a week Lungs: Negative - Constitutional Constitutional: Denies chills, Denies fever - EENT Eyes: denies blurred vision, denies pain Ears: deny: decreased hearing, tinnitus Ears, nose, mouth and throat: Reports headache, Denies sore throat - Breasts Breasts: bilateral: as per HPI - Cardiovascular Cardiovascular: Reports high blood pressure - Respiratory Respiratory: Denies cough - Gastrointestinal Gastrointestinal: Denies abdominal pain, Denies diarrhea, Denies nausea, Denies vomiting - Genitourinary (Female) Genitourinary: Denies dysuria, Denies hematuria - Menstruation Menstruation: Reports menses variable - Musculoskeletal Musculoskeletal: Denies myalgias - Integumentary Integumentary: Reports pruritus - Neurological Neurological: Denies numbness, Denies weakness - Psychiatric Psychiatric: Reports anxiety, Reports depression - Endocrine Endocrine: Reports fatigue, Denies weight change - Hematologic/Lymphatic Comment: none - Allergic/Immunologic Allergic/Immunologic: Reports as per HPI Objective - Vital Signs Vital signs: Vital Signs Temp 98.3 F 03/30/21 14:49 Pulse 61 03/30/21 14:49 Resp 16 03/30/21 14:49 BP 125/77 03/30/21 14:49 Pulse Ox 100 03/30/21 14:49 Intake & Output 03/29/21 03/30/21 03/30/21 18:59 06:59 18:59 Weight 71.668 kg - Exam 25.5 - Constitutional General appearance: Present: cooperative - EENT Eyes: Present: EOMI ENT: Present: hearing grossly normal - Neck Neck: Present: normal ROM - Respiratory Respiratory: bilateral: CTA - Cardiovascular Rhythm: regular Heart sounds: normal: S1, S2 - Gastrointestinal General gastrointestinal: Present: soft - Integumentary Integumentary: Present: normal turgor - Musculoskeletal Musculoskeletal: Present: gait normal - Psychiatric Psychiatric: Present: A&O x's 3, appropriate affect, intact judgment & insight - Additional findings Additional findings: Breast Exam: Bra: 36B inspection: Well-healed scar left breast from prior surgery, bilateral grade 1/2 ptosis Palpation: Right breast: Multi-positional exam fibrocystic changes, no dominant masses or nodules of concern Right axilla: No adenopathy of concern Left breast: Multi-positional exam fibrocystic changes no dominant masses or nodules of concern Left axilla: No adenopathy of concern Assessment and Plan Assessment: Impression: 1. Fibrocystic breast changes 2. Prior biopsy for atypical hyperplasia/patient has discussed chemoprevention with Dr. Chawla and declined at this time Plan: 1. Close surveillance 2. Repeat bilateral mammogram in 1 year with physician exam at that time Cc: Dr. Suresh
== END ==
LOC: WWCWWP 14:33
PROVIDERS: ATTEND Surgery
DX: N60.12 Diffuse cystic mastopathy of left breast (principal); N60.99 Unspecified benign mammary dysplasia of unspecified breast; I10 Essential (primary) hypertension

== ENCOUNTER → 2022-04-01 | Outpatient (CLI) | payer BC ==
--- NOTE | 2022-04-02 18:05 | MM ---
Reason for Exam: Screening (asymptomatic). Last screening mammogram was performed 12 month(s) ago. Patient History: Menarche at age 13. First Full-Term at age 30. Late child-bearing (after 30). Postmenopausal. Estrogen for 3 years, 2 months. Hormonal Contraceptives for 25 years from age 17 until age 47. 03/21/2020, Lumpectomy on the Left side. 03/21/2020, Benign Core Biopsy on the left side. 01/31/2020, High risk Core Biopsy on the left side. Maternal grandmother had breast cancer. Mother had breast cancer, age 50. Risk Values: Marylin 5 year model risk: 3.2%. NCI Lifetime model risk: 24.0%. Prior Study Comparison: 01/31/2020 Left Diagnostic Mammogram, [facility]. 10/18/2020 Left Diagnostic Mammogram, [facility]. 03/27/2021 Bilateral Diagnostic Mammogram, [facility]. Tissue Density: There are scattered fibroglandular densities. Findings: Analyzed By CAD. Postexcisional changes left breast. There are new microcalcifications at the excisional site. Further magnification views are recommended. These may represent fat necrosis calcifications. Otherwise, no significant change. Overall Assessment: Incomplete: need additional imaging evaluation, BI-RAD 0 Management: Special View Mammogram of the left breast. Mag CC, mag lateral, and 3-D lateral views. [facility] will attempt to contact patient to return for supplemental views and ultrasound if indicated. Electronically signed and approved by: Panfilo Terry M.D. Radiologist
== END | disposition home or self-care (01) ==
LOC: RADMAMWWP 16:33
PROVIDERS: ATTEND Surgery
DX: Z12.31 Encounter for screening mammogram for malignant neoplasm of breast (principal); Z78.0 Asymptomatic menopausal state; Z80.3 Family history of malignant neoplasm of breast
CPT/HCPCS: 77063; 77067

== ENCOUNTER → 2022-04-04 | Outpatient (CLI) | payer BC ==
--- NOTE | 2022-04-04 10:16 | MM ---
Reason for Exam: Additional evaluation requested from abnormal screening. Last screening mammogram was performed less than 1 month ago. Patient History: Menarche at age 13. First Full-Term at age 30. Late child-bearing (after 30). Postmenopausal. Estrogen for 3 years, 2 months. Hormonal Contraceptives for 25 years from age 17 until age 47. 03/21/2020, Lumpectomy on the Left side. 03/21/2020, Benign Core Biopsy on the left side. 01/31/2020, High risk Core Biopsy on the left side. Maternal grandmother had breast cancer. Mother had breast cancer, age 50. Risk Values: Marylin 5 year model risk: 3.2%. NCI Lifetime model risk: 24.0%. Prior Study Comparison: 10/18/2020 Left Diagnostic Mammogram, [facility]. 03/27/2021 Bilateral Diagnostic Mammogram, [facility]. 04/01/2022 Bilateral MG 3D screening mammo w/cad, [facility]. Tissue Density: Left: There are scattered fibroglandular densities. Findings: Analyzed By CAD. Postsurgical clips are within the subareolar left breast. There is interval development of multiple heterogenous calcifications in the region of the surgery from the comparison of 03/27/2021. Wall dystrophic calcifications from the biopsy site could be considered, other etiologies including neoplasm are within the differential. Sampling of the calcifications is recommended. Overall Assessment: Suspicious, BI-RAD 4 Management: Stereotactic Core Biopsy of the left breast. A clinical breast exam by your physician is recommended on an annual basis and results should be correlated with mammographic findings. This exam should not preclude additional follow-up of suspicious palpable abnormalities. Results were given to the patient verbally at the time of exam. Electronically signed and approved by: Power Faustin D.O. Radiologis
== END | disposition home or self-care (01) ==
LOC: RADMAMWWP 09:37
PROVIDERS: ATTEND Surgery
DX: R92.8 Other abnormal and inconclusive findings on diagnostic imaging of breast (principal); Z78.0 Asymptomatic menopausal state; Z80.3 Family history of malignant neoplasm of breast
CPT/HCPCS: 77061; 77065

== ENCOUNTER → 2022-05-17 | Day surgery (SDC) | payer BC ==
[2022-05-17 07:25] VITALS: RESP 16
--- NOTE | 2022-05-17 08:36 | P.PCN ---
Date of Procedure: 05/17/22 Preoperative Diagnosis: Microcalcifications of concern left breast Postoperative Diagnosis: Same Procedure(s) Performed: Stereotactic core biopsy left breast Anesthesia: local Surgeon: Rosa Maria Soto Pathology: other (Breast tissue with microcalcifications present) Condition: stable Disposition: same day Indications for Procedure: Microcalcifications of concern left breast Operative Findings: Microcalcifications of concern noted in the specimen biopsy Description of Procedure: The patient had a mammogram performed which revealed microcalcifications of concern in the left breast. This was in the upper subareolar portion of the breast. This was admitted previous area of biopsy and was felt could represent dystrophic calcifications that were considered of enough concern that they should be biopsied. Risks and benefits of the procedure were discussed with the patient. And she wished to proceed with stereotactic core biopsy. Patient was brought to the stereotactic core biopsy room. She was positioned prone on the low rad table. A route delivery driver film was obtained. The CC from above approach was utilized. The calcifications of concern were identified. The lesion was targeted. The breast was prepped using Betadine. 20 mL of 1% lidoca ine were used to anesthetize the area of concern. A 19-gauge vacuum-assisted core rotating biopsy needle was driven to the correct coordinates. The needle was fired. Post fair film was obtained and the needle was noted to be in the correct location. 13 core biopsy specimens were obtained. Radiograph of the specimens revealed the calcifications of concern were present. A secure ken top hat clip was placed. The clip was noted to be in the correct location. The specimen was sent to pathology. The patient will follow with Dr. Beck next week. CC: Dr. Suresh
[2022-05-17 08:37] VITALS: BP 122/81; PULSE 66; TEMP 98.1
--- NOTE | 2022-05-17 11:58 | MM ---
Date of Procedure: 05/17/22 Preoperative Diagnosis: Microcalcifications of concern left breast Postoperative Diagnosis: Same Procedure(s) Performed: Stereotactic core biopsy left breast Anesthesia: local Surgeon: Rosa Maria Soto Pathology: other (Breast tissue with microcalcifications present) Condition: stable Disposition: same day Indications for Procedure: Microcalcifications of concern left breast Operative Findings: Microcalcifications of concern noted in the specimen biopsy Description of Procedure: The patient had a mammogram performed which revealed microcalcifications of concern in the left breast. This was in the upper subareolar portion of the breast. This was admitted previous area of biopsy and was felt could represent dystrophic calcifications that were considered of enough concern that they should be biopsied. Risks and benefits of the procedure were discussed with the patient. And she wished to proceed with stereotactic core biopsy. Patient was brought to the stereotactic core biopsy room. She was positioned prone on the low rad table. A chairlift operator film was obtained. The CC from above approach was utilized. The calcifications of concern were identified. The lesion was targeted. The breast was prepped using Betadine. 20 mL of 1% lidocaine were used to anesthetize the area of concern. A 19-gauge vacuum- assisted core rotating biopsy needle was driven to the correct coordinates. The needle was fired. Post fair film was obtained and the needle was noted to be in the correct location. 13 core biopsy specimens were obtained. Radiograph of the specimens revealed the calcifications of concern were present. A secure ken top hat clip was placed. The clip was noted to be in the correct location. The specimen was sent to pathology. The patient will follow with Dr. Beck next week. SARAH
== END ==
LOC: RADMAMWWP 07:12
PROVIDERS: ATTEND Surgery
DX: N63.20 Unspecified lump in the left breast, unspecified quadrant (principal); N64.1 Fat necrosis of breast; N60.12 Diffuse cystic mastopathy of left breast; R92.0 Mammographic microcalcification found on diagnostic imaging of breast
CPT/HCPCS: 88305; 19081; A4648; J2001

== ENCOUNTER → 2022-11-26 | Outpatient (CLI) | payer BC ==
--- NOTE | 2022-12-10 10:55 | MM ---
Reason for Exam: Follow-up at short interval from prior study. Last screening mammogram was performed 8 month(s) ago. Patient History: Menarche at age 13. First Full-Term at age 30. Late child-bearing (after 30). Postmenopausal. Estrogen for 3 years, 2 months. Hormonal Contraceptives for 25 years from age 17 until age 47. 05/17/2022, Benign MG stereo VAD BX LT on the left side. 03/21/2020, Lumpectomy on the Left side. 03/21/2020, Benign Core Biopsy on the left side. 01/31/2020, High risk Core Biopsy on the left side. Maternal grandmother had breast cancer. Mother had breast cancer, age 50. Risk Values: Marylin 5 year model risk: 3.2%. NCI Lifetime model risk: 24.0%. Prior Study Comparison: 03/27/2021 Bilateral Diagnostic Mammogram, [facility]. 04/01/2022 Bilateral MG 3D screening mammo w/cad, [facility]. 04/04/2022 Left MG 3D work up w/cad LT, [facility]. Tissue Density: Left: There are scattered fibroglandular densities. Findings: Analyzed By CAD. Left breast postsurgical changes with calcification and surgical clips. No new suspicious masses, calcifications or distortions. Overall Assessment: Benign, BI-RAD 2 Management: Screening Mammogram of both breasts in 6 months. Results were given to the patient verbally at the time of exam. Patient should continue monthly self-breast exams. A clinical breast exam by your physician is recommended on an annual basis. This exam should not preclude additional follow-up of suspicious palpable abnormalities. Note on Marylin scores and lifetime risk: 1. A Marylin score greater than 3% is considered moderate risk. If this is the case, consider specialist referral to assess eligibility for a risk reducing agent. 2. If overall lifetime risk for the development of breast cancer is 20% or higher, the patient may qualify for future screening with alternating mammogram and breast MRI. Electronically signed and approved by: Vipul Mendoza DO
== END | disposition home or self-care (01) ==
LOC: RADMAMWWP 13:06
PROVIDERS: ATTEND Surgery
DX: R92.8 Other abnormal and inconclusive findings on diagnostic imaging of breast (principal); Z80.3 Family history of malignant neoplasm of breast; Z78.0 Asymptomatic menopausal state
CPT/HCPCS: 77061; 77065

== ENCOUNTER → 2022-12-27 | Outpatient (CLI) | payer BC ==
[2022-12-27 08:44] VITALS: BP 132/89; PULSE 56; RESP 17; TEMP 97.9
--- NOTE | 2022-12-27 09:02 | P.PN ---
Subjective Progress Note Date: 12/27/22 Principal diagnosis: atypical lobular hyperplasia left breast 2020 fibrocystic breast change The patient had a needle localization and excisional biopsy of the left breast on . This was benign. This was in response to a core biopsy which had been done and which revealed atypical lobular hyperplasia and lobular carcinoma in situ. The patient denies any masses lumps or new changes in her breast. No complaints of any nipple discharge or skin changes. There is no history of any recent trauma or infection in the breast. She has never had a breast biopsy or surgery on the breast in the past. She had bilateral mammogram performed on which was felt to be benign BIRADS 2. We have talked about chemoprevention. She had genetic testing and this was negative. She also discussed this with Dr. Chawla and decided against chemoprevention. Note Dr. Chawla 01-09-21 reviewed; discussed chemoprevention The patient on 04-01-22 had a bilateral mammogram resulting in additional views of the left breast. This led to a stero biopsy on 05-17-22 which was benign specific. She had a repeat left breast mammogram on 11-26-22 which was BIRAD 2. This time she complains of some fleeting discomfort in the lateral aspect of the left breast. She does not describe any nodules or lumps or masses of concern. She does not know anything that precipitates the pain. She is not having the pain at this time. On a scale of 1-10 it is a 3. Marylin risk evaluation was performed: Five-year risk for the patient is 3.2% Lifetime risk 24% Caffeine: 2 cups of coffee per day decreased from 6 cups Nicotine: Negative Theophylline: negative hormones: none, did take BCP for about 2 years Family history: mother: breast cancer paternal grandmother: breast cancer maternal grandmother: liver cancer maternal aunt: multiple myloma Hormonal History: menarche: 13 , age at 29, breast fed: yes menopause: no period 1 year; no hot flashes or night sweats BCP: Intermittently 20 years Hormones: Negative Surgical history: 1. Sebaceous cyst removed from her neck Medical history: Hypertension Migraine headaches Social History: smoke: none alcohol: social once or twice a week Lungs: Negative - Constitutional Constitutional: Denies chills, Denies fever - EENT Eyes: denies blurred vision, denies pain Ears: deny: decreased hearing, tinnitus Ears, nose, mouth and throat: Reports headache, Denies sore throat - Breasts Breasts: bilateral: as per HPI - Cardiovascular Cardiovascular: Reports high blood pressure - Respiratory Respiratory: Denies cough - Gastrointestinal Gastrointestinal: Denies abdominal pain, Denies diarrhea, Denies nausea, Denies vomiting - Genitourinary (Female) Genitourinary: Denies dysuria, Denies hematuria - Menstruation Menstruation: Reports menses variable - Musculoskeletal Musculoskeletal: Denies myalgias - Integumentary Integumentary: Reports pruritus - Neurological Neurological: Denies numbness, Denies weakness - Psychiatric Psychiatric: Reports anxiety, Reports depression - Endocrine Endocrine: Reports fatigue, Denies weight change - Hematologic/Lymphatic Comment: none - Allergic/Immunologic Allergic/Immunologic: Reports as per HPI Objective - Vital Signs Vital signs: Intake & Output 12/26/22 12/27/22 12/27/22 18:59 06:59 18:59 Weight 72.575 kg - Constitutional General appearance: Present: cooperative - EENT Eyes: Present: EOMI ENT: Present: hearing grossly normal - Neck Neck: Present: normal ROM - Respiratory Respiratory: bilateral: CTA - Cardiovascular Rhythm: regular Heart sounds: normal: S1, S2 - Gastrointestinal General gastrointestinal: Present: soft - Integumentary Integumentary: Present: normal turgor - Musculoskeletal Musculoskeletal: Present: gait normal - Psychiatric Psychiatric: Present: A&O x's 3, appropriate affect, intact judgment & insight - Additional findings Additional findings: Breast Exam: Bra: 36B inspection: Well-healed scar left breast from prior surgery, bilateral grade 1/2 ptosis Palpation: Right breast: Multi-positional exam fibrocystic changes, no dominant masses or nodules of concern, dense breast Right axilla: No adenopathy of concern Left breast: Multi-positional exam fibrocystic changes no dominant masses or nodules of concern, dense breast, well healed scar from prior surgery Left axilla: No adenopathy of concern Assessment and Plan Assessment: Impression: 1. Fibrocystic breast changes 2. Prior biopsy for atypical hyperplasia/patient has discussed chemoprevention with Dr. Chawla and declined at this time 3. Mastodynia lateral aspect of left breast is not present today, nothing which would warrant biopsy related to this Plan: 1. Close surveillance 2. Repeat bilateral mammogram in 6 months with physician exam at that time 3. will attempt to get MRI alternating with mammogram in 6 months; follow up at that time we will try to initiate the MRI at this time Cc: Dr. Suresh
== END ==
LOC: WWCWWP 08:34
PROVIDERS: ATTEND Surgery
DX: N60.12 Diffuse cystic mastopathy of left breast (principal); N60.81 Other benign mammary dysplasias of right breast; N64.4 Mastodynia; I10 Essential (primary) hypertension; G43.909 Migraine, unspecified, not intractable, without status migrainosus; G44.89 Other headache syndrome; Z80.3 Family history of malignant neoplasm of breast; Z99.89 Dependence on other enabling machines and devices

== ENCOUNTER → 2023-01-14 | Outpatient (CLI) | payer BC | END | disposition home or self-care (01) | LOC: RADMRIMAIN 09:19 | PROVIDERS: ATTEND Surgery | DX: Z53.9 Procedure and treatment not carried out, unspecified reason (principal) | CPT/HCPCS: 77049 ==

== ENCOUNTER 2023-11-05 07:43 | Day surgery (SDC) | payer BC ==
[2023-11-03 16:01] VITALS: BMI 25.8
[~2023-11-05 07:43] MED LIST changes: +HYDROmorphone 0.5 MG/0.5 ML SYRINGE IVP PRN; -LACTATED RINGERS 1,000 ML IV SCH; +LIDOCAINE 1% (10MG/ML) FOR IV START INTRADERMA PRN
[2023-11-05] MEDS: LACTATED RINGERS 1,000 ML IV SCH (08:16)
[2023-11-05] MEDS: DEXAMETHASONE SOD PHOSPHATE 4 MG/ML 1 ML VIAL IVP ONE (08:19)
[2023-11-05] MEDS: ONDANSETRON 4 MG/2 ML VIAL IVP PRN (08:19)
[2023-11-05] MEDS ORDERED: LIDOCAINE 1% INJ 10MG/ML (20 ML MDV) ONE (08:53)
[2023-11-05] MEDS ORDERED: PROPOFOL 10 MG/ML 20 ML VIAL IV ONE (08:53)
[2023-11-05 08:58] VITALS: TEMP 98.6
--- NOTE | 2023-11-05 09:16 | P.PCN ---
Date of Procedure: 11/05/23 Procedure(s) Performed: BRIEF HISTORY: Patient is a 53-year-old pleasant white female scheduled for an elective colonoscopy as a part of evaluation of prior history of colon polyps. PROCEDURE PERFORMED: Colonoscopy with snare polypectomy. PREOPERATIVE DIAGNOSIS: History of colon polyps. IV sedation per Anesthesia. PROCEDURE: After informed consent was obtained, the patient, was brought into the endoscopy unit. IV sedation was administered by Anesthesia under continuous monitoring. Digital rectal examination was normal. Initially the Olympus CF-160 flexible video colonoscope was then inserted in the rectum, gradually advanced into the cecum without any difficulty. Careful examination was performed as the scope was gradually being withdrawn. Ileocecal valve and the appendiceal orifice were visualized and appeared normal. Prep was excellent. Mucosa of the cecum, ascending colon, transverse colon, descending colon, were normal. The sigmoid colon there was a 5 mm sessile polyp removed by cold snare polypectomy. Rest of the sigmoid colon, and rectum appeared normal. Retroflexion was performed in the rectum and no lesions were seen. The patient tolerated the procedure well. IMPRESSION: 5 mm sessile proximal sigmoid colon polyp status post cold snare polypectomy Rest of the colon appeared normal RECOMMENDATIONS: Findings of this examination were discussed with the patient as well as her family. She was advised to follow-up with the biopsy results. If the biopsy reveals adenoma she can have a repeat colonoscopy in 5 years..
[2023-11-05 09:51] VITALS: BP 124/83; RESP 16
[2023-11-05 09:52] VITALS: PULSE 76
== END 2023-11-05 09:46 | disposition home or self-care (01) ==
LOC: ORWHC2ENDO 07:43
PROVIDERS: ATTEND Internal Medicine Gastroenterology
DX: Z12.11 Encounter for screening for malignant neoplasm of colon (principal); D12.5 Benign neoplasm of sigmoid colon; I10 Essential (primary) hypertension; E78.5 Hyperlipidemia, unspecified; G43.909 Migraine, unspecified, not intractable, without status migrainosus; F41.9 Anxiety disorder, unspecified; Z79.899 Other long term (current) drug therapy; Z86.010 Personal history of colon polyps
CPT/HCPCS: 88305; 45385; J1100; J2405; J2001; J2704

== ENCOUNTER → 2024-01-28 | Outpatient (CLI) | payer BC ==
--- NOTE | 2024-01-28 10:30 | MM ---
Reason for Exam: Hx of benign breast biopsy. Last mammogram was performed 1 year(s) and 10 month(s) ago. Patient History: Menarche at age 13. First Full-Term at age 30. Late child-bearing (after 30). Postmenopausal. Estrogen for 3 years, 2 months. Hormonal Contraceptives for 25 years from age 17 until age 47. 05/17/2022, Benign MG stereo VAD BX LT on the left side. 03/21/2020, Lumpectomy on the Left side. 03/21/2020, Benign Core Biopsy on the left side. 01/31/2020, High risk Core Biopsy on the left side. Maternal grandmother had breast cancer. Mother had breast cancer, age 50. Risk Values: Marylin 5 year model risk: 3.3%. NCI Lifetime model risk: 23.6%. Prior Study Comparison: 03/01/2019 Left Diagnostic Mammogram, [facility]. 01/31/2020 Left Diagnostic Mammogram, [facility]. 10/18/2020 Left Diagnostic Mammogram, [facility]. 04/01/2022 Bilateral MG 3D screening mammo w/cad, [facility]. 04/04/2022 Left MG 3D work up w/cad LT, [facility]. 11/26/2022 Left MG 3D diag mammo w/cad LT, [facility]. Tissue Density: The breasts are heterogeneously dense, which may obscure small masses. Findings: Analyzed By CAD. Stable postoperative changes left breast. No evidence for new mass or distortion. No suspicious microcalcifications. Overall Assessment: Benign, BI-RAD 2 Management: Screening Mammogram of both breasts in 1 year. . Results were given to the patient verbally at the time of exam. Patient should continue monthly self-breast exams. A clinical breast exam by your physician is recommended on an annual basis. This exam should not preclude additional follow-up of suspicious palpable abnormalities. Note on Marylin scores and lifetime risk: 1. A Marylin score greater than 3% is considered moderate risk. If this is the case, consider specialist referral to assess eligibility for a risk reducing agent. 2. If overall lifetime risk for the development of breast cancer is 20% or higher, the patient may qualify for future screening with alternating mammogram and breast MRI. Electronically signed and approved by: Fidel Chen M.D. Radiologis
== END | disposition home or self-care (01) ==
LOC: RADMAMWWP 09:31
PROVIDERS: ATTEND Surgery
DX: R92.8 Other abnormal and inconclusive findings on diagnostic imaging of breast (principal); R92.333 Mammographic heterogeneous density, bilateral breasts; Z78.0 Asymptomatic menopausal state; Z80.3 Family history of malignant neoplasm of breast
CPT/HCPCS: 77062; 77066

== ENCOUNTER → 2024-04-15 | Outpatient (CLI) | payer BC ==
[2024-04-15 13:34] VITALS: BP 127/82; PULSE 83; RESP 16; TEMP 98.1
--- NOTE | 2024-04-15 14:10 | P.PN ---
Subjective Progress Note Date: 04/15/24 Principal diagnosis: atypical lobular hyperplasia, high risk breast cancer 12/27/22 Principal diagnosis: atypical lobular hyperplasia left breast 2020 fibrocystic breast change The patient had a needle localization and excisional biopsy of the left breast on . This was benign. This was in response to a core biopsy which had been done and which revealed atypical lobular hyperplasia and lobular carcinoma in situ. The patient denies any masses lumps or new changes in her breast. No complaints of any nipple discharge or skin changes. There is no history of any recent trauma or infection in the breast. She has never had a breast biopsy or surgery on the breast in the past. She had bilateral mammogram performed on which was felt to be benign BIRADS 2. We have talked about chemoprevention. She had genetic testing and this was negative. She also discussed this with Dr. Chawla and decided against chemoprevention. Note Dr. Chawla 01-09-21 reviewed; discussed chemoprevention The patient on 04-01-22 had a bilateral mammogram resulting in additional views of the left breast. This led to a stero biopsy on 05-17-22 which was benign specific. She had a repeat left breast mammogram on 11-26-22 which was BIRAD 2. This time she complains of some fleeting discomfort in the lateral aspect of the left breast. She does not describe any nodules or lumps or masses of concern. She does not know anything that precipitates the pain. She is not having the pain at this time. On a scale of 1-10 it is a 3. 04-15-24 Letitia is a 54 year old female with a history of atypical lobular hyperlasia of the left breast and high risk for breast cancer life time risk > 20%. She had an MRI done 05-15-23 which was BIRAD 2. This was personally reviewed. She had a bilateral mammogram on 01-28-24 which was reviewed, and discussed with Dr. Stack from radiology. The calcifications in the left breast were felt to be stable. The patient does not feel any new lumps masses or nodules of concern in either breast. She is not complaining of any nipple discharge or skin changes. She is through menopause. She did talk to Dr. Chawla in the past about chemoprevention and is not interested at this time. She believes she had genetic testing done in the past and was told there was no actionable gene. Marylin risk evaluation was performed: Five-year risk for the patient is 3.3% Lifetime risk 23.6% Caffeine: 2 cups of coffee per day decreased from 6 cups Nicotine: Negative Theophylline: negative hormones: none, did take BCP for about 2 years Family history: mother: breast cancer paternal grandmother: breast cancer maternal grandmother: liver cancer maternal aunt: multiple myloma Hormonal History: menarche: 13 , age at 29, breast fed: yes menopause: no period 1 year; no hot flashes or night sweats BCP: Intermittently 20 years Hormones: Negative Surgical history: 1. Sebaceous cyst removed from her neck Medical history: Hypertension Migraine headaches Social History: smoke: none alcohol: social once or twice a week Lungs: Negative - Constitutional Constitutional: Denies chills, Denies fever - EENT Eyes: denies blurred vision, denies pain Ears: deny: decreased hearing, tinnitus Ears, nose, mouth and throat: Reports headache, Denies sore throat - Breasts Breasts: bilateral: as per HPI - Cardiovascular Cardiovascular: Reports high blood pressure - Respiratory Respiratory: Denies cough - Gastrointestinal Gastrointestinal: Denies abdominal pain, Denies diarrhea, Denies nausea, Denies vomiting - Genitourinary (Female) Genitourinary: Denies dysuria, Denies hematuria - Menstruation Menstruation: Reports menses variable - Musculoskeletal Musculoskeletal: Denies myalgias - Integumentary Integumentary: Reports pruritus - Neurological Neurological: Denies numbness, Denies weakness - Psychiatric Psychiatric: Reports anxiety, Reports depression - Endocrine Endocrine: Reports fatigue, Denies weight change - Hematologic/Lymphatic Comment: none - Allergic/Immunologic Allergic/Immunologic: Reports as per HPI Objective - Vital Signs Vital signs: Vital Signs Temp 98.1 F 04/15/24 13:32 Pulse 83 04/15/24 13:32 Resp 16 04/15/24 13:32 BP 127/82 04/15/24 13:32 Pulse Ox 98 04/15/24 13:32 FiO2 Intake & Output 04/14/24 04/15/24 04/15/24 18:59 06:59 18:59 Weight 71.668 kg - Constitutional General appearance: Present: cooperative - EENT Eyes: Present: EOMI ENT: Present: hearing grossly normal - Neck Neck: Present: normal ROM - Respiratory Respiratory: bilateral: CTA - Cardiovascular Heart sounds: normal: S1, S2 - Integumentary Integumentary: Present: normal turgor - Musculoskeletal Musculoskeletal: Present: gait normal - Psychiatric Psychiatric: Present: A&O x's 3, appropriate affect, intact judgment & insight - Additional findings Additional findings: Breast Exam: Bra: 36B inspection: Well-healed scar left breast from prior surgery, bilateral grade 1/2 ptosis Palpation: Right breast: Multi-positional exam fibrocystic changes, no dominant masses or nodules of concern, dense breast Right axilla: No adenopathy of concern Left breast: Multi-positional exam fibrocystic changes no dominant masses or nodules of concern, dense breast, well healed scar from prior surgery Left axilla: No adenopathy of concern Assessment and Plan Assessment: Impression: 1. Fibrocystic breast changes 2. Prior biopsy for atypical hyperplasia/patient has discussed chemoprevention with Dr. Chawla and declined at this time 3. Mastodynia lateral aspect of left breast is not present today, nothing which would warrant biopsy related to this Plan: 1. Close surveillance 2. Repeat bilateral mammogram in 6 months with physician exam at that time 3. alternate MRI and mammogram every 6 months 4. she is due for an MRI in May 2024 with appointment at that time 5. Chemoprevention and at this time the patient would like to just have close surveillance Cc: Dr. Suresh
== END ==
LOC: WWCWWP 12:57
PROVIDERS: ATTEND Surgery

== ENCOUNTER → 2024-06-12 | Outpatient (CLI) | payer BC ==
--- NOTE | 2024-06-15 09:26 | BMR ---
EXAM DATE: 06/12/2024 EXAM DESCRIPTION: MRI-Breast Bilat (W/WO Contrast) INDICATION: Previous left breast lumpectomy. Family history of breast cancer. COMPARISON: PRIOR MRIs: None available. Correlation to mammograms: 01/28/2024. Correlation to ultrasound: None available. CONTRAST: 7 cc Gadavist IV gadolinium contrast TECHNIQUE: Multiplanar multisequence MR imaging of both breasts was performed with a dedicated breast coil. Images were obtained before and after administration of IV gadolinium, using the standard breast mass protocol. Computer aided detection was utilized for interpretation. FINDINGS: LMP: Not provided General breast composition: There are scattered areas of fibroglandular tissue Background parenchymal enhancement: Mild RIGHT BREAST: The T2 weighted series shows no areas of abnormal signal intensity. Review of the dynamic series shows postsurgical changes left breast.. LEFT BREAST: The T2 weighted series shows no areas of abnormal signal intensity. Review of the dynamic series shows no early or abnormal enhancement. LYMPH NODES: There is no evidence of internal mammary or axillary adenopathy. Miscellaneous: Bilateral pleural effusions. IMPRESSION: RIGHT BREAST: No MR evidence of malignancy. LEFT BREAST: No MR evidence of malignancy. OVERALL ASSESSMENT -- BI-RADS 2: Benign ANNUAL SCREENING BREAST MRI IN ADDITION TO MAMMOGRAPHY IS RECOMMENDED IN PATIENTS WITH LIFETIME RISK OF BREAST CANCER >20% MTDD
== END | disposition home or self-care (01) ==
LOC: RADMRIMAIN 09:50
PROVIDERS: ATTEND Surgery
DX: R92.8 Other abnormal and inconclusive findings on diagnostic imaging of breast (principal); Z15.01 Genetic susceptibility to malignant neoplasm of breast; Z80.3 Family history of malignant neoplasm of breast
CPT/HCPCS: 77049; A9585

== ENCOUNTER → 2024-07-09 | Outpatient (CLI) | payer BC ==
[2024-07-09 11:33] VITALS: BP 161/98; PULSE 70; RESP 17; TEMP 98.7
--- NOTE | 2024-07-09 11:55 | P.PN ---
Subjective Progress Note Date: 07/09/24 04/15/24 Principal diagnosis: atypical lobular hyperplasia, high risk breast cancer 12/27/22 Principal diagnosis: atypical lobular hyperplasia left breast 2020 fibrocystic breast change The patient had a needle localization and excisional biopsy of the left breast on . This was benign. This was in response to a core biopsy which had been done and [id number] which revealed atypical lobular hyperplasia and lobular carcinoma in situ. The patient denies any masses lumps or new changes in her breast. No complaints of any nipple discharge or skin changes. There is no history of any recent trauma or infection in the breast. She has never had a breast biopsy or surgery on the breast in the past. She had bilateral mammogram performed on which was felt to be benign BIRADS 2. We have talked about chemoprevention. She had genetic testing and this was negative. She also discussed this with Dr. Chawla and decided against chemoprevention. Note Dr. Chawla 01-09-21 reviewed; discussed chemoprevention The patient on 04-01-22 had a bilateral mammogram resulting in additional views of the left breast. This led to a stero biopsy on 05-17-22 which was benign specific. She had a repeat left breast mammogram on 11-26-22 which was BIRAD 2. This time she complains of some fleeting discomfort in the lateral aspect of the left breast. She does not describe any nodules or lumps or masses of concern. She does not know anything that precipitates the pain. She is not having the pain at this time. On a scale of 1-10 it is a 3. 04-15-24 Letitia is a 54 year old female with a history of atypical lobular hyperlasia of the left breast and high risk for breast cancer life time risk > 20%. She had an MRI done 05-15-23 which was BIRAD 2. This was personally reviewed. She had a bilateral mammogram on 01-28-24 which was reviewed, and discussed with Dr. Stack from radiology. The calcifications in the left breast were felt to be stable. The patient does not feel any new lumps masses or nodules of concern in either breast. She is not complaining of any nipple discharge or skin changes. She is through menopause. She did talk to Dr. Chawla in the past about chemoprevention and is not interested at this time. She believes she had genetic testing done in the past and was told there was no actionable gene. 07-09-24 bilateral breast MRI on 06-12-24 BIRAD 2, however showed bilateral pleural effusions She is not complaining of any new lumps masses or nodules of concern in either breast Marylin risk evaluation was performed: Five-year risk for the patient is 3.3% Lifetime risk 23.6% Caffeine: 2 cups of coffee per day decreased from 6 cups Nicotine: Negative Theophylline: negative hormones: none, did take BCP for about 2 years Family history: mother: breast cancer paternal grandmother: breast cancer maternal grandmother: liver cancer maternal aunt: multiple myloma Hormonal History: menarche: 13 , age at 29, breast fed: yes menopause: no period 1 year; no hot flashes or night sweats BCP: Intermittently 20 years Hormones: Negative Surgical history: 1. Sebaceous cyst removed from her neck Medical history: Hypertension Migraine headaches Social History: smoke: none alcohol: social once or twice a week Lungs: Negative - Constitutional Constitutional: Denies chills, Denies fever - EENT Eyes: denies blurred vision, denies pain Ears: deny: decreased hearing, tinnitus Ears, nose, mouth and throat: Reports headache, Denies sore throat - Breasts Breasts: bilateral: as per HPI - Cardiovascular Cardiovascular: Reports high blood pressure - Respiratory Respiratory: Denies cough - Gastrointestinal Gastrointestinal: Denies abdominal pain, Denies diarrhea, Denies nausea, Denies vomiting - Genitourinary (Female) Genitourinary: Denies dysuria, Denies hematuria - Menstruation Menstruation: Reports menses variable - Musculoskeletal Musculoskeletal: Denies myalgias - Integumentary Integumentary: Reports pruritus - Neurological Neurological: Denies numbness, Denies weakness - Psychiatric Psychiatric: Reports anxiety, Reports depression - Endocrine Endocrine: Reports fatigue, Denies weight change - Hematologic/Lymphatic Comment: none - Allergic/Immunologic Allergic/Immunologic: Reports as per HPI Objective - Vital Signs Vital signs: Vital Signs Temp 98.7 F 07/09/24 11:30 Pulse 70 07/09/24 11:30 Resp 17 07/09/24 11:30 BP 161/98 07/09/24 11:30 Pulse Ox 99 07/09/24 11:30 FiO2 Intake & Output 01/08/3107/09/24 07/09/24 18:59 06:59 18:59 Weight 70.76 kg - Constitutional General appearance: Present: cooperative - EENT Eyes: Present: EOMI ENT: Present: hearing grossly normal - Neck Neck: Present: normal ROM - Respiratory Respiratory: bilateral: CTA - Cardiovascular Rhythm: regular Heart sounds: normal: S1, S2 - Integumentary Integumentary: Present: normal turgor - Musculoskeletal Musculoskeletal: Present: gait normal - Psychiatric Psychiatric: Present: A&O x's 3, appropriate affect, intact judgment & insight - Additional findings Additional findings: Breast Exam from 04-15-24 Bra: 36B inspection: Well-healed scar left breast from prior surgery, bilateral grade 1/2 ptosis Palpation: Right breast: Multi-positional exam fibrocystic changes, no dominant masses or nodules of concern, dense breast Right axilla: No adenopathy of concern Left breast: Multi-positional exam fibrocystic changes no dominant masses or nodules of concern, dense breast, well healed scar from prior surgery Left axilla: No adenopathy of concern Assessment and Plan Assessment: Impression: 1. Fibrocystic breast changes 2. Prior biopsy for atypical hyperplasia/patient has discussed chemoprevention with Dr. Chawla and declined at this time 3. Mastodynia lateral aspect of left breast is not present today, nothing which would warrant biopsy related to this 4. bilateral breast MRI on 06-12-24 BIRAD 2 ; early effusions noted Plan: 1. Close surveillance 2. Repeat bilateral mammogram in 6 months with physician exam at that time 3. alternate MRI and mammogram every 6 months 4. she is due for bilateral mammogram in December 2024 with appointment at that time 5. Chemoprevention and at this time the patient would like to just have close surveillance 6. follow up with Dr. Suresh regarding pleural effusion Cc: Dr. Suresh
== END ==
LOC: WWCWWP 10:41
PROVIDERS: ATTEND Surgery
DX: N60.12 Diffuse cystic mastopathy of left breast (principal); N60.89 Other benign mammary dysplasias of unspecified breast; R92.8 Other abnormal and inconclusive findings on diagnostic imaging of breast; Z80.3 Family history of malignant neoplasm of breast

== ENCOUNTER → 2025-01-28 | Outpatient (CLI) | payer BC ==
--- NOTE | 2025-01-28 11:13 | MM ---
Reason for Exam: Clinical finding. Last screening mammogram was performed 12 month(s) ago. Patient History: Menarche at age 13. First Full-Term at age 30. Late child-bearing (after 30). Postmenopausal. Estrogen for 3 years, 2 months. Hormonal Contraceptives for 25 years from age 17 until age 47. 05/17/2022, Benign MG stereo VAD BX LT on the left side. 03/21/2020, Lumpectomy on the Left side. 03/21/2020, Benign Core Biopsy on the left side. 01/31/2020, High risk Core Biopsy on the left side. Maternal grandmother had breast cancer. Mother had breast cancer, age 50. Risk Values: Marylin 5 year model risk: 3.4%. NCI Lifetime model risk: 23.2%. Prior Study Comparison: 10/18/2020 Left Diagnostic Mammogram, [facility]. 03/27/2021 Bilateral Diagnostic Mammogram, [facility]. 04/01/2022 Bilateral MG 3D screening mammo w/cad, [facility]. 04/04/2022 Left MG 3D work up w/cad LT, [facility]. 11/26/2022 Left MG 3D diag mammo w/cad LT, [facility]. 01/28/2024 Bilateral MG 3D diag mammo w/cad DWIGHT, [facility]. Tissue Density: There are scattered areas of fibroglandular density. Findings: Analyzed By CAD. Left breast surgical clips. No new suspicious masses, calcifications or distortions. Overall Assessment: Benign, BI-RAD 2 Management: Screening Mammogram of both breasts in 1 year. Results were given to the patient verbally at the time of exam. Patient should continue monthly self-breast exams. A clinical breast exam by your physician is recommended on an annual basis. This exam should not preclude additional follow-up of suspicious palpable abnormalities. Note on Marylin scores and lifetime risk: 1. A Marylin score greater than 3% is considered moderate risk. If this is the case, consider specialist referral to assess eligibility for a risk reducing agent. 2. If overall lifetime risk for the development of breast cancer is 20% or higher, the patient may qualify for future screening with alternating mammogram and breast MRI. [facility], , 01/28/2025 11:06 AM. Electronically signed and approved by: Vipul Mendoza DO
== END | disposition home or self-care (01) ==
LOC: RADMAMWWP 09:27
PROVIDERS: ATTEND Surgery
DX: R92.8 Other abnormal and inconclusive findings on diagnostic imaging of breast (principal); R92.323 Mammographic fibroglandular density, bilateral breasts; Z80.3 Family history of malignant neoplasm of breast; Z78.0 Asymptomatic menopausal state; Z92.0 Personal history of contraception
CPT/HCPCS: 77062; 77066